=== PATIENT | female | born 1950 | race African-American/Black ===

== ENCOUNTER 2016-10-25 10:03 | Emergency (ER) | payer OTHER ==
[~2016-10-25] VITALS: Ht 162.6 cm; Wt 95.6 kg
[~2016-10-25 10:03] MED LIST: AMOXICILLIN875 MG PO; NAPROSYN500 MG PO; PEN-VEE K,VEET500 MG PO; PERCOCET 5/31 TABLET PO; PREDNISONE10 MG PO; TORADOL10 MG PO; ULTRAM50 MG PO; ZOFRAN8 MG PO
[2016-10-25] MEDS ORDERED: MOBIC7.5 MG PO (10:55)
[2016-10-25] MEDS ORDERED: TRAMADOL HCL50 MG PO (10:55)
[2016-10-25 11:02] VITALS: BP 123/52
== END 2016-10-25 11:04 | disposition home or self-care (01) ==
LOC: EME 10:03
DX: M54.5 Low back pain (principal); M25.561 Pain in right knee; M25.562 Pain in left knee
CPT/HCPCS: 99281; 99283

== ENCOUNTER 2017-05-22 12:34 | Emergency (ER) | payer OTHER ==
[~2017-05-22] VITALS: Ht 165.1 cm; Wt 94.7 kg
[~2017-05-22 12:34] MED LIST changes: +MOBIC7.5 MG PO; +TRAMADOL HCL50 MG PO
[2017-05-22] MEDS ORDERED: VALIUM5 MG PO (16:10)
[2017-05-22] MEDS ORDERED: MOTRIN800 MG PO (16:10)
[2017-05-22 16:20] VITALS: BP 144/65
== END 2017-05-22 16:21 | disposition home or self-care (01) ==
LOC: EME 12:34
DX: S16.1XXA Strain of muscle, fascia and tendon at neck level, initial encounter (principal); S29.012A Strain of muscle and tendon of back wall of thorax, initial encounter; M54.5 Low back pain; R07.9 Chest pain, unspecified; V43.62XA Car passenger injured in collision with other type car in traffic accident, initial encounter; Y92.410 Unspecified street and highway as the place of occurrence of the external cause; M85.88 Other specified disorders of bone density and structure, other site
CPT/HCPCS: 72040; 72070; 99281; 99284

== ENCOUNTER 2017-06-01 19:04 | Emergency (ER) | payer OTHER ==
[~2017-06-01] VITALS: Ht 165.1 cm; Wt 94.3 kg
[~2017-06-01 19:04] MED LIST changes: +MOTRIN800 MG PO; +VALIUM5 MG PO
[2017-06-01 19:56] LABS: HEMATOCRIT 44.1 % (36.0-46.0); MCH 27.7 PG (29.0-34.0); MCHC 32.4 G/DL (30.0-36.0); MCV 85.3 FL (83-99); MEAN PLAT.VOLUME 11.2 uM^3 (9.5-12.4); PLATELET COUNT 139 K/uL (156-360); RBC DIS.WIDTH-CV 14.3 % (11.8-14.6); RBC DIS.WIDTH-SD 44.3 % (39-53); RED BLOOD COUNT 5.17 M/uL (3.80-5.20); WHITE BLOOD COUNT 6.1 K/uL (4.1-10.2)
[2017-06-01 19:58] LABS: CARBON DIOXIDE (BICARBONATE) 32.6 MEQ/L (20-31)
[2017-06-01 20:06] LABS: CHLORIDE 107 mEq/L (99-109); POTASSIUM 3.7 mEq/L (3.7-5.4); SODIUM 141 mEq/L (136-147)
[2017-06-01 20:08] LABS: GLUCOSE 100 mg/dL (70-99)
[2017-06-01 20:10] LABS: ANION GAP 5 MEQ/L (2-14)
[2017-06-01 20:12] LABS: GFR ESTIMATE (CALCULATED) > 59 mL/min/
[2017-06-01 20:13] LABS: UREA NITROGEN (BUN) 8 mg/dL (9-23)
[2017-06-01 20:17] LABS: TROP-I INTERPRETATION NEGATIVE; TROPONIN-I < 0.01 ng/mL (0.0-0.30)
[2017-06-01] MEDS ORDERED: PROVENTIL HFA6.7 GM IH (20:49)
[2017-06-01] MEDS ORDERED: PREDNISONE20 MG PO (20:49)
[2017-06-01] MEDS ORDERED: ZITHROMAX Z-PA250 MG PO (20:49)
[2017-06-01 21:47] VITALS: BP 134/76
== END 2017-06-01 21:48 | disposition home or self-care (01) ==
LOC: EME 19:04
PROVIDERS: Emergency Medicine
DX: R06.02 Shortness of breath (principal); R05 Cough; R07.9 Chest pain, unspecified; M54.2 Cervicalgia
CPT/HCPCS: 71020; 80048; 82803; 83605; 84484; 85027; 93005; 99281; 99284

== ENCOUNTER 2017-11-03 18:51 | Observation (INO) | payer OTHER ==
[~2017-11-03] VITALS: Ht 165.1 cm; Wt 95.8 kg
[~2017-11-03 18:51] MED LIST changes: +PREDNISONE20 MG PO; +PROVENTIL HFA6.7 GM IH; +ZITHROMAX Z-PA250 MG PO
[2017-11-03 19:41] LABS: HEMATOCRIT 41.2 % (36.0-46.0); HEMOGLOBIN 13.6 G/DL (11.9-15.5); MCH 28.3 PG (29.0-34.0); MCV 85.8 FL (83-99); PLATELET COUNT 142 K/uL (156-360); RBC DIS.WIDTH-CV 14.6 % (11.8-14.6); RBC DIS.WIDTH-SD 45.5 % (39-53); WHITE BLOOD COUNT 5.8 K/uL (4.1-10.2)
[2017-11-03 20:01] LABS: CHLORIDE 109 mEq/L (99-109); POTASSIUM 4.3 mEq/L (3.7-5.4); SODIUM 144 mEq/L (136-147)
[2017-11-03 20:02] LABS: GLUCOSE 101 mg/dL (70-99)
[2017-11-03 20:06] LABS: CREATININE 0.7 mg/dL (0.6-1.3); GFR ESTIMATE (CALCULATED) > 59 mL/min/
[2017-11-03 20:07] LABS: UREA NITROGEN (BUN) 14 mg/dL (9-23)
[2017-11-03 20:16] LABS: TROP-I INTERPRETATION NEGATIVE; TROPONIN-I < 0.01 ng/mL (0.0-0.30)
[2017-11-03] MEDS ORDERED: PERCOCET 5/31 TABLET PO (20:52)
[2017-11-03] MEDS ORDERED: PROVENTIL HFA6.7 GM IH (20:54)
[2017-11-03] MEDS ORDERED: IBUPROFEN800 MG PO (20:54)
[2017-11-03 22:38] VITALS: BP 141/62
[2017-11-04 02:52] LABS: TROP-I INTERPRETATION NEGATIVE; TROPONIN-I < 0.01 ng/mL (0.0-0.30)
[2017-11-04 03:27] VITALS: BP 111/56
[2017-11-04 07:44] LABS: HDL CHOLESTEROL 59 MG/DL (Desirable>=50); LDL CHOLESTEROL 103 mg/dL (Desirable<100); NON-HDL CHOLESTEROL 115 mg/dL (Desirable<160); TOTAL CHOLESTEROL 174 mg/dL (Desirable<200); TRIGLYCERIDES 62 MG/DL (Normal: <150)
[2017-11-04 07:45] LABS: TROP-I INTERPRETATION NEGATIVE; TROPONIN-I < 0.01 ng/mL (0.0-0.30)
[2017-11-04 09:28] VITALS: BP 107/57
[2017-11-04 11:18] VITALS: BP 112/55
[2017-11-04 15:34] VITALS: BP 116/66
== END 2017-11-04 18:01 | disposition home or self-care (01) ==
LOC: EME 18:51 → 5WEST 21:20 → EDOF 21:20 → ENRESERV 21:24 → 5WEST 22:30 → ENPENDDIS 11-04 17:55 → 5WEST 11-04 18:01
PROVIDERS: Physician Assistant Medical
DX: R07.2 Precordial pain (principal); R94.31 Abnormal electrocardiogram [ECG] [EKG]; Z82.49 Family history of ischemic heart disease and other diseases of the circulatory system; M19.90 Unspecified osteoarthritis, unspecified site; G89.29 Other chronic pain; M54.9 Dorsalgia, unspecified; V43.62XA Car passenger injured in collision with other type car in traffic accident, initial encounter; S81.801A Unspecified open wound, right lower leg, initial encounter; E78.5 Hyperlipidemia, unspecified; R01.1 Cardiac murmur, unspecified; E66.9 Obesity, unspecified; Z68.35 Body mass index [BMI] 35.0-35.9, adult; Z86.19 Personal history of other infectious and parasitic diseases; Z79.891 Long term (current) use of opiate analgesic; J45.909 Unspecified asthma, uncomplicated; Z80.8 Family history of malignant neoplasm of other organs or systems
CPT/HCPCS: 71046; 73030; 80048; 80061; 84484; 85027; 93005; 99281; 99285; G0378